=== PATIENT | male | born 1980 | race Caucasian/White ===

== ENCOUNTER 2017-12-09 01:27 | Emergency (ER) | payer SELFPAY ==
[2017-12-09] MEDS ORDERED: ASPIRIN 81 MG CHEW TAB PO ONE (01:51)
--- NOTE | 2017-12-09 01:53 | ED Physician Documentation ---
Chest Pain - HISTORIAN Historian: patient - HPI Stated Complaint: chest pain Chief Complaint: Chest Pain Onset: minutes (45) Timing: sudden onset Duration: none Last known Well Date: 12/09/17 Last Known Well Time: 01:00 Last known Well Code/Unknown Code: Unknown Context: sleep Severity: mild Quality: pressure, tightness Chest Pain Radiation: jaw, neck Chest Pain Signs/Symptoms: nausea, diaphoresis Worsened By: nothing Relieved By: nothing Further Comments: yes (he states that the chest pain hit him and then was gone almost instantly. States the pain was sharp and pressure. He had nausea, diaphoresis and then he states the pain was gone. He reports his brother of an DE at 44. He denies any further complaints . No cardiac history. HTN is the only history) - ROS CONST: none - PAST HX DE risk factors: hypertension DVT/PE Risk Factors: none TAD/AAA risk factors: none Neuro deficit: none GI disease: none Lung disease: none Surgeries/Procedures: none Immunizations: UTD Allergies/Adverse Reactions: Allergies Allergy/AdvReac Type Severity Reaction Status Date / Time gluten Allergy Rash Verified 12/09/17 02:06 Home Medications: Ambulatory Orders Medication Instructions Recorded NK [NK] 12/09/17 - SOCIAL HX Smoking History: non-smoker Alcohol Use: none Drug Use: none - FAMILY HX Family HX: none - REVIEWED ASSESSMENTS Nursing Assessment Reviewed: Yes Vitals Reviewed: Yes ED Results Lab/Radiology - Radiology Radiology Impressions: Chest, 2 view History: CHEST PAINS X 3 HOURS Findings: The heart size is normal. The lungs are clear. There is no pleural effusion or pneumothorax identified. The osseous structures are normal. Impression: 1. No acute pulmonary disease. Electronically signed on December 09, 2017 2:41:27 AM CDT by: Gavin Gamez - Orders Orders: ED Orders Category Date Time Status Continuous EKG monitoring Q30M Care 12/09/17 01:52 Ordered Continuous Pulse Oximetry Q30M Care 12/09/17 01:[address] IV Lock 1T Care 12/09/17 01:52 Ordered CHEST 2VIEW [RAD] Stat Exams 12/09/17 Ordered CBC/PLATELET/DIFF Routine Lab 12/09/17 01:52 Ordered CMP Routine Lab 12/09/17 01:52 Ordered CREATINE KINASE Routine Lab 12/09/17 01:52 Ordered TROPONIN I (cTnI) Stat Lab 12/09/17 01:52 Ordered Aspirin Med 12/09/17 01:51 Once 324 mg PO NOW ONE EKG WITH COMPARISON Stat Ther 12/09/17 01:52 Ordered Chest Pain Physical Exam - EXAM General Appearance: no acute distress, alert EENT: eye inspection normal Neck: nml inspection Respiratory: no resp. distress, chest non-tender, nml breath sounds CVS: reg. rate & rhythm, no murmur, no gallop Abdomen: soft Skin: warm/dry, normal color Extremities: non-tender, normal range of motion, no evidence of injury, no edema Neuro: oriented X3, CN's nml as tested, motor nml, sensation nml, mood/affect nml, cognition normal Discharge Clincal Impression: Chest pain Qualifiers: Chest pain type: unspecified Qualified Code(s): R07.9 - Chest pain, unspecified Comments: 1. Follow up with PCP for cardiac work up due to family history 2. Return to ER for any further chest pain or other concerns Condition: Stable Disposition: 01 HOME, SELF-CARE Decision to Admit: NO Date of Decison to Admit: 12/09/17 Decision Time: 02:54
[2017-12-09 02:20] LABS: BASOPHILS % 0.6 (0.0-1.5); EOSINOPHILS % 4.1 % (0.0-6.8); MEAN CORPUSCULAR HEMOGLOBIN 30.2 pg (28.0-34.0); MEAN CORPUSCULAR VOLUME 86.7 fl (80.0-100.0); MONOCYTES % 5.3 % (0.0-11.0); NEUTROPHILS # 4.4 # k/uL (1.4-7.7)
[2017-12-09 02:37] LABS: eGFR (African) > 60; eGFR (Non-African) > 60
[2017-12-09 03:20] VITALS: BP 102/56
--- NOTE | 2017-12-09 03:58 | ED Physician Documentation ---
Nausea/Vomiting/Diarrhea - HISTORIAN Historian: patient - HPI Stated Complaint: chest pain Chief Complaint: Chest Pain Onset: hours (4) Duration: constant Last known Well Code/Unknown Code: Unknown Timing: sudden onset Context: denies: out of country travel, bad food, recent trauma Severity: moderate Further Comments: yes (He states he woke mid afternoon for his work shift and he noticed chest pain. He has had some nausea and vomiting with the chest pain. He is not sure how many times he vomited but he knows he feels like he could. Chest pain feels cramping. He feels like he is nervous. He states he has had meds once before for anxiety. he denies any meds for the current symptoms) - Associated Symptoms Vomiting: other (not sure of how many times ) Abdominal Pain: none - ROS CONST: none CVS/RESP: chest pain. denies: shortness of breath GI/: none EYES/ENT: none MS/SKIN/LYMPH: denies: rash NEURO/PSYCH: none - PAST HX Past History: none Surgeries/Procedures: none Immunizations: UTD Allergies/Adverse Reactions: Allergies Allergy/AdvReac Type Severity Reaction Status Date / Time gluten Allergy Rash Verified 12/09/17 02:06 Home Medications: Ambulatory Orders Medication Instructions Recorded NK [NK] 12/09/17 - SOCIAL HX Smoking History: non-smoker Alcohol Use: none Drug Use: none - FAMILY HX Family History: none - VITAL SIGNS Vital Signs: Vital Signs Temp Pulse Resp BP Pulse Ox 98.1 F 74 17 102/56 100 12/09/17 01:28 12/09/17 03:18 12/09/17 03:18 12/09/17 03:18 12/09/17 03:18 - REVIEWED ASSESSMENTS Nursing Assessment Reviewed: Yes Vitals Reviewed: Yes ED Results Lab/Radiology - Lab Results Lab Results: Lab Results 12/09/17 12/09/17 12/09/17 02:12 02:12 02:11 WBC 7.70 K/ul K/ul (4.00-12.00) RBC 4.90 M/ul M/ul (3.90-5.20) Hgb 14.8 g/dL g/dL (12.0-18.0) Hct 42.5 % % (37.0-53.0) MCV 86.7 fl fl (80.0-100.0) MCH 30.2 pg pg (28.0-34.0) MCHC 34.8 g/dL g/dL (30.0-36.0) RDW 12.9 % % (11.3-14.3) Plt Count 283 K/mm3 K/mm3 (130-400) Neut % (Auto) 57.2 % % (39.0-79.0) Lymph % (Auto) 30.4 % % (16.0-50.0) [place] % (Auto) 5.3 % % (0.0-11.0) Eos % (Auto) 4.1 % % (0.0-6.8) Baso % (Auto) 0.6 (0.0-1.5) Neut # (Auto) 4.4 # k/uL # k/uL (1.4-7.7) Lymph # (Auto) 2.3 # k/uL # k/uL (0.6-4.0) [place] # (Auto) 0.4 # k/uL # k/uL (0.0-0.9) Eos # (Auto) 0.3 # k/uL # k/uL (0.0-0.6) Baso # (Auto) 0.0 # k/uL # k/uL (0.0-0.5) Reactive Lymphs % 2.5 % % (0.0-5.0) Reactive Lymphs # 0.2 # k/uL # k/uL (0.0-0.8) Sodium 139 mmol/L mmol/L (136-145) Potassium 3.6 mmol/L mmol/L (3.5-5.1) Chloride 102 mmol/L mmol/L (98-107) Carbon Dioxide 27 mmol/L mmol/L (22-30) BUN 20 mg/dL mg/dL (9-20) Creatinine 0.90 mg/dL mg/dL (0.66-1.25) Estimated Creat Clear 157 Est GFR ( Amer) > 60 (60 - ) Est GFR (Non-Af Amer) > 60 (60 - ) Glucose 107 mg/dL H mg/dL (74-106) Calcium 9.6 mg/dL mg/dL (8.4-10.2) Total Bilirubin 0.1 mg/dL L mg/dL (0.2-1.3) AST 28 U/L U/L (15-46) ALT 60 U/L U/L (13-69) Alkaline Phosphatase 77 U/L U/L (38-126) Creatine Kinase 119 U/L U/L (55-170) Troponin I < 0.03 ng/mL L ng/mL (0.03-0.06) Total Protein 7.2 g/dL g/dL (6.3-8.2) Albumin 4.7 g/dL g/dL (3.5-5.0) - Orders Orders: ED Orders Category Date Time Status Continuous EKG monitoring Q30M Care 12/09/17 01:52 Active Continuous Pulse Oximetry Q30M Care 12/09/17 01:[address] IV Lock 1T Care 12/09/17 01:52 Active CHEST 2VIEW [RAD] Stat Exams 12/09/17 Completed CBC/PLATELET/DIFF Routine Lab 12/09/17 02:12 Completed CMP Routine Lab 12/09/17 02:12 Completed CREATINE KINASE Routine Lab 12/09/17 02:12 Completed TROPONIN I (cTnI) Stat Lab 12/09/17 02:11 Completed Aspirin Med 12/09/17 01:51 Discontinued 324 mg PO NOW ONE EKG WITH COMPARISON Stat Ther 12/09/17 01:52 Completed Nausea Physical Exam - EXAM General Appearance: no acute distress, alert EENT: eye inspection normal, ENT inspection normal Neck: normal inspection Respiratory: no resp distress, chest non-tender, breath sounds normal CVS: reg rate & rhythm, heart sounds normal, equal pulses, no murmur Abdomen: non-tender, no organomegaly Back: non-tender, painless ROM Skin: warm/dry, normal color Extremities: non-tender, normal range of motion, no evidence of injury, no edema Neuro/Psych: oriented X3, CN's nml as tested, motor nml, sensation nml, mood/ affect nml, cognition normal Discharge Clincal Impression: Chest pain Qualifiers: Chest pain type: unspecified Qualified Code(s): R07.9 - Chest pain, unspecified Condition: Stable Disposition: 01 HOME, SELF-CARE Decision to Admit: NO Date of Decison to Admit: 12/09/17 Decision Time: 03:00
--- NOTE | 2017-12-09 08:08 | Diagnostic Imaging Report ---
ANANMARIA NICOLE [facility] [address] [facility] [address] [place], [place]. [address] Report Submission Date: December 09, 2017 2:41:27 AM CDT Patient Study Name: BIANCA RAMÍREZ Date: December 09, 2017 2:23:09 AM CDT Modality Type: DX Gender: M Description: CHEST : 78 Institution: [facility] Physician: ANNAMARIA NICOLE Chest, 2 view History: CHEST PAINS X 3 HOURS Findings: The heart size is normal. The lungs are clear. There is no pleural effusion or pneumothorax identified. The osseous structures are normal. Impression: 1. No acute pulmonary disease. Electronically signed on December 09, 2017 2:41:27 AM CDT by: Gavin ROQUE
== END 2017-12-09 03:02 | disposition home or self-care (01) ==
LOC: ED 01:27
DX: R07.9 Chest pain, unspecified (principal)
CPT/HCPCS: 71046; 80053; 82550; 84484; 85025; 99285; S1016